=== PATIENT | female | born 1995 | race Caucasian/White ===

== ENCOUNTER 2023-01-19 17:03 | Observation (INO) | payer MEDICAID, SELFPAY ==
[2023-01-19 17:04] VITALS: BP 111/86; PULSE 85; RESP 17; TEMP 37; O2SAT 98; BMI 29.5
--- NOTE | 2023-01-19 17:16 | EDS_ITS ---
HPI History of Present Illness Chief Complaint: Substance Abuse Informant: patient Narrative Narrative: Requesting detox from opiates. Patient's been using fentanyl for about 2 or so years. She has never been through detox program before. She has tried Suboxone as an outpatient but has not worked well. She tried it recently when it was prescribed by her family doctor. But she states she is pretty sure she went into precipitated withdrawal. She is not comfortable doing this as an outpatient as it just has not been successful. She states she is just done with using drugs. It is too much injury to her body and too much money and she wants to be off them. She did have a drainage of an abscess in her right antecubital fossa about a week ago. She has 3 days of Bactrim left. She states is doing better. Of note, she has so much scarring in her antecubital fossa on both sides that she cannot extend her arms fully. This is chronic and not acute. She is not having fevers or chills. She has never had infected heart valves. She feels the arm that was treated is doing a lot better. PFSH PFSH Home Medications risperidone 1 mg tablet 1 mg PO DAILY NA 07/02/14 [History Last Taken Unknown] topiramate 50 mg tablet (Topamax) 50 mg PO PRN PRN Headache 07/02/14 [History Last Taken Unknown] medroxyprogesterone 150 mg/mL intramuscular syringe 150 mg IM .[id number] PROGESTERONE 07/03/14 [History Last Taken Unknown] oxycodone-acetaminophen 5 mg-325 mg tablet 1 - 2 tab PO Q4H PRN PRN Pain #20 tabs 07/03/14 [Rx Last Taken Unknown] albuterol sulfate 90 mcg/actuation aerosol inhaler inhalation ASTHMA 01/19/23 [History Last Taken Unknown] buprenorphine HCl 8 mg sublingual tablet 8 mg sublingual BID detox 01/19/23 [History Last Taken 01/14/23] cephalexin 500 mg capsule 500 mg PO BID ABSCESS 01/19/23 [History Last Taken Unknown] clonidine HCl 0.1 mg tablet 0.1 mg PO QHS BP AND SLEEP 01/19/23 [History Last Taken 01/18/23] gabapentin 800 mg tablet 800 mg PO 4X/DAY sciatic nerve 01/19/23 [History Last Taken 01/19/23] lamotrigine 25 mg tablet 25 mg PO DAILY DEPRESSION 01/19/23 [History Last Taken Unknown] sulfamethoxazole 800 mg-trimethoprim 160 mg tablet 1 tab PO BID infection 01/19/23 [History Last Taken Unknown] Allergy/AdvReac Type Severity Reaction Status Date / Time acetaminophen [From [place]] Allergy Rash Verified 07/03/14 13:04 hydrocodone bitartrate Allergy Rash Verified 07/03/14 13:04 [From [place]] buprenorphine [From Suboxone] AdvReac blisters Verified 01/19/23 17:04 naloxone [From Suboxone] AdvReac blisters Verified 01/19/23 17:04 Social History Smoking Status: Never smoker ROS ROS ED ROS Narrative Patient withdrawal she gets nausea vomiting muscle aches congestion anxiety but she is not withdrawing now as she used to to 3 hours ago. Her review of systems is essentially negative right now. Constitutional Constitutional ED: Denies chills, fever(s) or sweats Eyes Eyes: Denies change in vision ENT ENT ED: Denies rhinorrhea Cardiovascular Cardiovascular: Denies chest pain or palpitations Respiratory/Chest Respiratory/Chest: Denies cough or dyspnea Gastrointestinal Gastrointestinal: Denies nausea or vomiting Musculoskeletal Musculoskeletal: Denies neck pain Integumentary Reports abscess and other Details: Abscess right antecubital fossa. Neurologic Neurologic: Denies headache(s) Psychiatric Psychiatric: Denies suicidal ideation or suicidal thoughts Endocrine Endocrinology: Denies polydipsia or polyuria Hematologic/Lymphatic Hematologic/Lymphatic: Denies easy bleeding or easy bruising Allergic/Immunologic Allergic/Immunologic ED: Denies urticaria EXAM Physical Exam Narrative Exam Narrative: Awake alert no acute distress. Reasonably good informant. HEENT shows no trauma. Neck is supple Heart is regular. I cannot hear any murmurs at all. Lungs are clear bilaterally. Saturations are normal at 98% on room air showing no hypoxia. Abdomen is nontender Extremities show dense formation of track diez in both antecubital fossa. These are so dense and scarred that she cannot extend either arm. She has about a 20 to 30 degree extension lag. This is chronic and not acute. There is a little bit of an open area healing in the right antecubital fossa but no sign of cellulitis. She is on day of 7 of 10 days of Bactrim for this and feels like it is getting markedly better. Const Vital Signs: 01/19/23 17:04 Temperature 98.6 F Temperature Source Temporal Pulse Rate 85 Respiratory Rate 17 Blood Pressure 111/86 H Blood Pressure Mean 94 Pulse Ox 98 Oxygen Delivery Method Room Air MDM MDM MDM Narrative Medical decision making narrative: Patient's electrolytes show no marked abnormalities. Patient's liver function test show no acute abnormalities. Patient CBC shows normal white count but mild anemia. If his alcohol is negative. Urine toxicology is positive for MDMA and opiates. Jackelyn the case with hospitalist. We actually discussed this case prior to all the blood work returning. Plan will be admission pending marked abnormalities. Lab Data Attestation: I reviewed the patient's lab results. Labs: Laboratory Results - last 24 hr 01/19/23 01/19/23 01/19/23 17:30 17:40 17:40 WBC Cancelled Corrected WBC Cancelled RBC Cancelled Hgb Cancelled Hct Cancelled MCV Cancelled MCH Cancelled MCHC Cancelled RDW Std Deviation Cancelled RDW Coeff of Juan Cancelled Plt Count Cancelled MPV Cancelled Immature Gran % (Auto) Cancelled Neut % (Auto) Cancelled Lymph % (Auto) Cancelled Leon % (Auto) Cancelled Eos % (Auto) Cancelled Baso % (Auto) Cancelled Absolute Neuts (auto) Cancelled Absolute Lymphs (auto) Cancelled Total Counted Cancelled Neutrophils % (Manual) Cancelled Band Neutrophils % Cancelled Lymphocytes % (Manual) Cancelled Monocytes % (Manual) Cancelled Eosinophils % (Manual) Cancelled Basophils % (Manual) Cancelled Metamyelocytes % Cancelled Myelocytes % Cancelled Promyelocytes % Cancelled Blast Cells % Cancelled Plasma Cell % (Manual) Cancelled Other Cells % Cancelled Nucleated RBC % Cancelled Nucleated RBCs/100 WBC Cancelled Differential Comment Cancelled Diff Path Review Cancelled Hypersegmented Neuts Cancelled Atypical Lymphocytes Cancelled Reactive Lymphocytes Cancelled Smudge Cells Cancelled Toxic Granulation Cancelled Toxic Vacuolation Cancelled Dohle Bodies Cancelled Jai Rods Cancelled Platelet Estimate Cancelled Plt Morphology Comment Cancelled RBC Morphology Cancelled Cancelled Polychromasia Cancelled Hypochromasia Cancelled Poikilocytosis Cancelled Basophilic Stippling Cancelled Anisocytosis Cancelled Microcytosis Cancelled Macrocytosis Cancelled Spherocytes Cancelled Sickle Cells Cancelled Target Cells Cancelled Tear Drop Cells Cancelled Ovalocytes Cancelled Stomatocytes Cancelled [place] Bodies Cancelled Liz Cells Cancelled Bite Cells Cancelled Crenated Cell Cancelled Acanthocytes (Spur) Cancelled Rouleaux Cancelled Schistocytes Cancelled Sodium 135 L Potassium 3.9 Chloride 102 Carbon Dioxide 28.0 Anion Gap 5 BUN 8 Creatinine 0.58 Estim Creat Clear Calc 136.39 Est GFR (MDRD) Af Amer 159 Est GFR (MDRD) Non-Af 131 BUN/Creatinine Ratio 13.7 Glucose 88 Calcium 9.0 Total Bilirubin 0.50 AST 43 H ALT 47 Alkaline Phosphatase 115 Total Protein 7.8 Albumin 3.4 Globulin 4.4 H Albumin/Globulin Ratio 0.8 L Serum , Qual NEGATIVE Urine Opiates Screen POSITIVE H Urine Methadone Screen NEGATIVE Ur Barbiturates Screen NEGATIVE Ur Phencyclidine Scrn NEGATIVE Ur Amphetamines Screen NEGATIVE MDMA (Ecstasy) Screen POSITIVE H U Benzodiazepines Scrn NEGATIVE Urine Cocaine Screen NEGATIVE U Cannabinoids Screen NEGATIVE Ur Drug Screen Comment Ethyl Alcohol < 3.0 Management Discussion w/another healthcare provider: Hospitalist Discharge Plan Dx/Rx/DC Orders Clinical Impression: Opiate withdrawal, Desire for detoxification, Opiate abuse, continuous Disposition Disposition: Acute Care Hospital [facility] Discharge Date/Time: 01/19/23 18:53
--- NOTE | 2023-01-19 17:32 | PCM.HP.STD ---
HPI - General General Date of Admission: 01/19/23 Date of Service: 01/19/23 Chief Complaint: acute opioid withdrawal HPI Narrative BRISA GARRISON, is a 27 F with a PMh as outlined including chronic drug abuse who presents via the ED on 01/19/2023 for detox from alcohol. She ahs been using fentanyl for ~ 2 years now, and her last use was on the morning of admission. She used about 2 grams of fentanyl daily and uses it IV. She had used suboxone in the past but it hadnt helped much. She also recently had an abscess drained via I&D in her antecubital fossa by her PCP recently and was on antibiotics. She denied any shakes, tremors, nausea, vomiting or any other symptoms. Review of systems was otherwise negative. BP of 111/86, MT of 85, resp of 17 and temp of 98.6F. She was saturating at 98% on room air. CBC and CMP were pending. She is being admitted to be managed for acute opioid withdrawal. [facility] Home Medications risperidone 1 mg tablet 1 mg PO DAILY NA 07/02/14 [History Last Taken Unknown] topiramate 50 mg tablet (Topamax) 50 mg PO PRN PRN Headache 07/02/14 [History Last Taken Unknown] medroxyprogesterone 150 mg/mL intramuscular syringe 150 mg IM .[id number] PROGESTERONE 07/03/14 [History Last Taken Unknown] oxycodone-acetaminophen 5 mg-325 mg tablet 1 - 2 tab PO Q4H PRN PRN Pain #20 tabs 07/03/14 [Rx Last Taken Unknown] albuterol sulfate 90 mcg/actuation aerosol inhaler inhalation ASTHMA 01/19/23 [History Last Taken Unknown] buprenorphine HCl 8 mg sublingual tablet 8 mg sublingual BID detox 01/19/23 [History Last Taken 01/14/23] cephalexin 500 mg capsule 500 mg PO BID ABSCESS 01/19/23 [History Last Taken Unknown] clonidine HCl 0.1 mg tablet 0.1 mg PO QHS BP AND SLEEP 01/19/23 [History Last Taken 01/18/23] gabapentin 800 mg tablet 800 mg PO 4X/DAY sciatic nerve 01/19/23 [History Last Taken 01/19/23] lamotrigine 25 mg tablet 25 mg PO DAILY DEPRESSION 01/19/23 [History Last Taken Unknown] Allergy/AdvReac Type Severity Reaction Status Date / Time acetaminophen [From [place]] Allergy Rash Verified 07/03/14 13:04 hydrocodone bitartrate Allergy Rash Verified 07/03/14 13:04 [From [place]] buprenorphine [From Suboxone] AdvReac blisters Verified 01/19/23 17:04 naloxone [From Suboxone] AdvReac blisters Verified 01/19/23 17:04 Social History Smoking Status: Never smoker ROS Constitutional Constitutional: Denies anorexia, chills, fatigue, fever(s), malaise or weakness Eyes Eyes: Denies change in vision ENT HEENT: Denies dysphagia or headache(s) Cardiovascular Cardiovascular: Denies chest pain, edema or paroxysmal nocturnal dyspnea Respiratory/Chest Respiratory/Chest: Denies cough, shortness of breath at rest or shortness of breath with exertion Gastrointestinal Gastrointestinal: Denies abdominal pain, diarrhea, nausea or vomiting Genitourinary Genitourinary: Denies dysuria Musculoskeletal Musculoskeletal: Denies muscle weakness Integumentary Integumentary: Denies dry skin Neurologic Neurologic: Denies confusion, dizziness, focal weakness, headache(s) or weakness Psychiatric Psychiatric: Denies anxiety Endocrine Endocrinology: Denies change in body appearance Vital Signs Vital Signs Vital Signs: 01/19/23 17:04 Temperature 98.6 F Temperature Source Temporal Pulse Rate 85 Respiratory Rate 17 Blood Pressure 111/86 H Blood Pressure Mean 94 Pulse Ox 98 Oxygen Delivery Method Room Air Weight Weight: 183 lb 4.8 oz Body Mass Index (BMI) 29.5 Physical Exam Const alert, oriented x3 and no apparent distress General Appearance: cooperative HEENT normocephalic, head/scalp atraumatic, moist oral mucous membranes and oropharynx normal Eyes PERRL and EOMs intact bilaterally Neck no lymphadenopathy and supple Lymph Lymphatic: no lymphadenopathy noted and no lymphedema noted Resp normal respiratory effort, normal air movement and clear to auscultation bilaterally Cardio regular rate, regular rhythm, S1 normal heart sound, S2 normal heart sound and no murmurs GI normal to inspection, nondistended, normoactive bowel sounds, soft to palpation, non-tender and non-distended Extremity Extremity Narrative: upper extremity contractures which are chronic. Due to IV drug use. Neuro CN's II-XII intact bilaterally, no focal motor deficits and no sensory deficits noted Psych thought process normal and cooperative Appearance: appropriate Results Lab / Micro Data 01/19/23 18:35 01/19/23 17:40 Assessment & Plan Assessment/Plan (1) Opiate withdrawal: PLAN: Plan #Acute opioid withdrawal Admit to [facility] Started on opioid withdrawal protocol with buprenorphine Adjunctive meds for symptomatic relief #Recent left antecubital fossa abscess S/p I&D done by her PCP. currently on Bactrim. We will continue. DVT prophylaxis: Low risk. Encouraged to ambulate. Charges/Coding Visit Charges Inpatient E&M: 01684 Init Hosp L3
--- NOTE | 2023-01-19 17:59 | CM.ED ---
Addendum entered by Aniyah Hays 01/19/23 18:49: treatment navigator updated. Plan: [facility] AKBAR Astudillo Original Note: Social Work Referral Source: case find Referral Reason: [facility] SW met with patient and introduced self and role as [facility] SW. Patient lying on hospital bed and agreeable to speak with SW. SW inquired about patient's AOD use as well as knowledge of [facility]. Patient reports fentanyl use with last use today and limited knowledge of [facility]. SW briefly reviewed rules including the program is voluntary, personal belongings including phone are locked up and no guests are permitted to allow the patient to be focused on detox. SW also explained the patient will meet with detox coordinator to discuss aftercare/ discharge plan. Patient voiced understanding and reports her mother and significant other are her main supports, explaining her significant other is 10 years sober. SW provided patient with emotional support. SW remains available if further needs arise. AKBAR Astudillo
[2023-01-19 18:18] LABS: Amphetamine Urine VISTA NEGATIVE (<1000 ng/mL); Barbiturate Urine VISTA NEGATIVE (< 200 ng/mL); Benzodiazepine Urine VISTA NEGATIVE (< 200 ng/mL); Cocaine Urine VISTA NEGATIVE (< 300 ng/mL); Ecstacy Urine VISTA POSITIVE (< 500 ng/mL); Methadone Urine VISTA NEGATIVE (< 300 ng/mL); PCP Urine VISTA NEGATIVE (< 25 ng/mL); THC Urine VISTA NEGATIVE (< 50 ng/mL); Vista UDS pH Range 7
[2023-01-19 18:20] LABS: Alcohol, Blood (Medical)-Serum < 3.0 mg/dL
[2023-01-19 18:24] LABS: Internal QC Validated? YES +Cl - CLEAR BKGD; Pregnancy, Serum, hCG Quali. NEGATIVE Negative
[2023-01-19 18:27] LABS: ALB/GLOB Ratio 0.8 RATIO (0.9-2.4); AST(SGOT) 43 U/L (15-37); Alanine Aminotransfer ALT/SGPT 47 U/L (13-56); Albumin, Serum 3.4 g/dL (3.2-5.0); Alkaline Phosphatase 115 U/L (45-117); Anion Gap 5 (5-15); BUN 8 mg/dL (7-18); BUN/Creat Ratio 13.7 RATIO (10-20); Chloride 102 mmol/L (98-107); Creatinine, Serum 0.58 mg/dL (0.55-1.02); EST Glomerular Filtration Rate 131 mL/min (>60); Est Glom Filt Rate - Afr Amer 159 mL/min (>60); Estimated Creatinine Clearance 136.39 ml/min; Globulin 4.4 g/dL (2.2-4.2); Glucose 88 mg/dL (74-106); Potassium 3.9 mmol/L (3.5-5.1); Protein, Total 7.8 g/dL (6.4-8.2); Sodium Level 135 mmol/L (136-145)
[2023-01-19 18:33] LABS: Absolute Lymphocyte Count 2.13 X10^3/uL (0.83-4.51); Absolute Neutrophil Count 2.7 X10^3/uL (2.0-7.7); Basophil# 0.03 X10^3/uL; Basophil% 0.5 % (0-1); Eosinophil# 0.37 X10^3/uL; Eosinophils% 6.6 % (0-5); Hematocrit 35.1 % (37-47); Lymphocyte # 2.13 X10^3/ul (0.83-4.51); Lymphocyte % 37.8 % (19-41); Mean Corp Hgb Conc 31.3 g/dL (32-36); Mean Corpuscular Volume 79.8 fL (81-99); Mean Platelet Vol. 9.9 fl (6.2-12.0); Monocyte# 0.35 X10^3/uL; Monocyte% 6.2 % (0-10); NRBC Flagged by Analyzer 0 % (0-5); Neutrophil # 2.74 X10^3/uL (2.7-7.7); Neutrophil % 48.5 % (47-70); Platelet Count 243 K/mm3 (150-450); RBC Distribution Width CV 15.5 % (11.6-14.6); White Blood Count 5.6 K/mm3 (4.4-11.0)
[2023-01-19 19:01] VITALS: BMI 29.2
[2023-01-19 19:02] VITALS: BP 127/81; PULSE 74; RESP 18; TEMP 36.6; O2SAT 100
[2023-01-19 20:11] VITALS: BP 109/73; PULSE 98; RESP 16; TEMP 36.8; O2SAT 99
[2023-01-19] MEDS: cloNIDine HCl 0.1 MG Tablet PO (20:40)
[2023-01-19] MEDS: Methocarbamol 750 MG Tablet PO (20:40)
[2023-01-19] MEDS: hydrOXYzine PAM 25 MG Capsule 50 MG PO (20:41)
--- NOTE | 2023-01-19 20:42 | NURSING ---
pt states she has a prescription for 8mg of subutex from her physician at home that she will begin when she leaves [facility]. She reports she will take it BID and that she cannot take medications with narcan as she ie allergic. this nurse provided printed information on buprenorphine to pt to review prior to beginning taper. pt reports she is afraid of precipitous withdrawal and wants to wait to begin the taper until closer to 0000. Pt reports she takes Gabapentin 800mg QID and clonidine .1 Qhs along with lamictal QAM. pt also reports that due to her IV infiltration to her right AC she was taking BActrim BID and states that she is suppose to take it for 4 more days and is requesting order.
--- NOTE | 2023-01-19 23:25 | NURSING ---
Addendum entered by Jennifer Cam 01/20/23 01:57: At start of shift nurse went in to see pt and she reports that she was feeling restless and feeling the effects of withdrawal. She was asking questions regarding home medications and states that she needs to have her Gabapentin as ordered 800mg Q8H, Conidine 0.1, Bactrim BID for 4 more days per her PCP (I&D right AC due to infiltration). Home medication list addressed with Dr. Pearson and updated accordingly. Pt also asked this nurse if she would be given 8mg of Subutex BID as she was ordered by her physician, that was to begin this Tuesday. She reports that her goal is to get completely off of the Fentanyl by using Subutex only. However, she reports that she had tried to withdrawal and took Subutex which caused a precipitous withdrawal and so she used a large amount of Fentanyl, IV, to reverse the effect. Pt reports that her physician notified her that she will prescribe 8mg BID of Subutex for at least up to 18 months upon d/c from hospital. Nurse notified pt that her answers to the COWS questions show that she is symptomatic and can begin buprenorphine. Pt reports she does not want it now and will wait until closer to 0000 to be sure she is in full withdrawal. PRN meds given at 2039 (vistaril, methocarbamol and clonidine). pt then took a shower. Original Note: Meds given at 2039. Pt requested to have home meds ordered and then took a shower. She requested to have buprenorphine closer to 0000. this nurse entered room at 2300 to see if pt needed medications. Pt laying on her left side in bed. This nurse turned lights on and pt was sleeping soundly. Pt. looked at this nurse, rolled her eyes and closed her eyes and laid her head back down on her pillow. This nurse will continue to monitor pt.
[2023-01-20 03:02] VITALS: BP 93/67; PULSE 73; RESP 16; TEMP 36.2; O2SAT 100
--- NOTE | 2023-01-20 03:12 | NURSING ---
TOXICOLOGY TEACHER's in to check on patient and she was awake in bed requesting snacks- same given. Notified TOXICOLOGY TEACHER's that she would like PM medications and that her stomach was cramping. This nurse entered room, checked vitals, assessed pt and completed the CINA which resulted in a score of 0. Pt then requested to hold off on taking any medications until tomorrow during the day.
[2023-01-20 06:35] LABS: Absolute Lymphocyte Count 2.11 X10^3/uL (0.83-4.51); Absolute Neutrophil Count 1.6 X10^3/uL (2.0-7.7); Basophil# 0.03 X10^3/uL; Basophil% 0.7 % (0-1); Eosinophil# 0.36 X10^3/uL; Eosinophils% 8.1 % (0-5); Hematocrit 32.1 % (37-47); Hemoglobin 9.8 g/dL (12.0-15.0); Lymphocyte # 2.11 X10^3/ul (0.83-4.51); Lymphocyte % 47.4 % (19-41); Mean Corp Hgb Conc 30.5 g/dL (32-36); Mean Corpuscular Hgb 24.7 pg (27.0-32.0); Mean Corpuscular Volume 80.9 fL (81-99); Mean Platelet Vol. 10.1 fl (6.2-12.0); Monocyte# 0.34 X10^3/uL; Monocyte% 7.6 % (0-10); NRBC Flagged by Analyzer 0 % (0-5); Platelet Count 232 K/mm3 (150-450); RBC Distribution Width CV 15.6 % (11.6-14.6); RBC Distribution Width SD 45.8 fl (35.1-43.9); Red Blood Count 3.97 M/mm3 (4.2-5.4); White Blood Count 4.5 K/mm3 (4.4-11.0)
[2023-01-20 06:59] LABS: Anion Gap 2 (5-15); BUN 9 mg/dL (7-18); BUN/Creat Ratio 15.3 RATIO (10-20); Calcium,Total 8.8 mg/dL (8.5-10.1); Chloride 104 mmol/L (98-107); Creatinine, Serum 0.59 mg/dL (0.55-1.02); EST Glomerular Filtration Rate 130 mL/min (>60); Est Glom Filt Rate - Afr Amer 157 mL/min (>60); Estimated Creatinine Clearance 134.08 ml/min; Glucose 129 mg/dL (74-106); Potassium 4.1 mmol/L (3.5-5.1); Sodium Level 137 mmol/L (136-145)
[2023-01-20 10:47] VITALS: BP 96/63; PULSE 75; RESP 16; TEMP 36.7; O2SAT 100
[2023-01-20] MEDS: Cephalexin 500 MG Capsule PO (10:52)
[2023-01-20] MEDS: Smz/Tmp Ds Tablet 1 TABLET PO (10:52)
[2023-01-20] MEDS: Gabapentin 800 MG Tablet PO ×2 (10:52→15:17)
[2023-01-20] MEDS: lamoTRIgine 25 MG Tablet PO (10:53)
--- NOTE | 2023-01-20 11:08 | NURSING ---
Joaquin Rosen called to check up on pt and this nurse was busy at the time so this nurse just called back and there was no answer, message left.
[2023-01-20] MEDS: Methocarbamol 750 MG Tablet PO (11:29)
[2023-01-20] MEDS: Buprenorphine HCl 2 MG TAB.SUBL 4 MG SL (11:29)
[2023-01-20] MEDS: hydrOXYzine PAM 25 MG Capsule 50 MG PO (11:29)
[2023-01-20] MEDS: Ondansetron 8 MG Tablet PO (12:35)
[2023-01-20] MEDS: cloNIDine HCl 0.1 MG Tablet PO (12:44)
[2023-01-20] MEDS: Dicyclomine 10 MG Capsule 20 MG PO (12:44)
[2023-01-20] MEDS: Loperamide 2 MG Capsule PO (12:44)
--- NOTE | 2023-01-20 14:41 | PCM.PN.HOSP ---
Reason for Visit Reason for Visit: Follow-up for acute opioid withdrawal syndrome Subjective Subjective Patient having shaking in the morning. Prior to that she was sleeping. She did not want buprenorphin for 2424 hrs. of admission. Objective Data Objective Data Vital Signs: Vital Signs Temp Pulse Resp BP Pulse Ox O2 Del Method 98.0 F 75 16 96/63 100 Room Air 01/20/23 10:47 01/20/23 10:47 01/20/23 10:47 01/20/23 10:47 01/20/23 10:47 01/20/23 10:47 Oxygen Delivery Method Room Air Weight: 180 lb 12.465 oz Body Mass Index (BMI) 29.2 Lab / Micro Data 01/20/23 06:25 01/20/23 06:25 Labs: Laboratory Results - last 24 hr 01/19/23 17:30: Urine Opiates Screen POSITIVE H, Urine Methadone Screen NEGATIVE, Ur Barbiturates Screen NEGATIVE, Ur Phencyclidine Scrn NEGATIVE, Ur Amphetamines Screen NEGATIVE, MDMA (Ecstasy) Screen POSITIVE H, U Benzodiazepines Scrn NEGATIVE, Urine Cocaine Screen NEGATIVE, U Cannabinoids Screen NEGATIVE, Ur Drug Screen Comment 01/19/23 17:40: WBC Cancelled, Corrected WBC Cancelled, RBC Cancelled, Hgb Cancelled, Hct Cancelled, MCV Cancelled, MCH Cancelled, MCHC Cancelled, RDW Std Deviation Cancelled, RDW Coeff of Juan Cancelled, Plt Count Cancelled, MPV Cancelled, Immature Gran % (Auto) Cancelled, Neut % (Auto) Cancelled, Lymph % (Auto) Cancelled, [place] % (Auto) Cancelled, Eos % (Auto) Cancelled, Baso % (Auto) Cancelled, Absolute Neuts (auto) Cancelled, Absolute Lymphs (auto) Cancelled, Total Counted Cancelled, Neutrophils % (Manual) Cancelled, Band Neutrophils % Cancelled, Lymphocytes % (Manual) Cancelled, Monocytes % (Manual) Cancelled, Eosinophils % (Manual) Cancelled, Basophils % (Manual) Cancelled, Metamyelocytes % Cancelled, Myelocytes % Cancelled, Promyelocytes % Cancelled, Blast Cells % Cancelled, Plasma Cell % (Manual) Cancelled, Other Cells % Cancelled, Nucleated RBC % Cancelled, Nucleated RBCs/100 WBC Cancelled, Differential Comment Cancelled, Diff Path Review Cancelled, Hypersegmented Neuts Cancelled, Atypical Lymphocytes Cancelled, Reactive Lymphocytes Cancelled, Smudge Cells Cancelled, Toxic Granulation Cancelled, Toxic Vacuolation Cancelled, Dohle Bodies Cancelled, Jai Rods Cancelled, Platelet Estimate Cancelled, Plt Morphology Comment Cancelled, RBC Morphology Cancelled 01/19/23 17:40: RBC Morphology Cancelled, Polychromasia Cancelled, Hypochromasia Cancelled, Poikilocytosis Cancelled, Basophilic Stippling Cancelled, Anisocytosis Cancelled, Microcytosis Cancelled, Macrocytosis Cancelled, Spherocytes Cancelled, Sickle Cells Cancelled, Target Cells Cancelled, Tear Drop Cells Cancelled, Ovalocytes Cancelled, Stomatocytes Cancelled, [place]az[place] Bodies Cancelled, Liz Cells Cancelled, Bite Cells Cancelled, Crenated Cell Cancelled, Acanthocytes (Spur) Cancelled, Rouleaux Cancelled, Schistocytes Cancelled, Sodium 135 L, Potassium 3.9, Chloride 102, Carbon Dioxide 28.0, Anion Gap 5, BUN 8, Creatinine 0.58, Estim Creat Clear Calc 136.39, Est GFR (MDRD) Af Amer 159, Est GFR (MDRD) Non-Af 131, BUN/Creatinine Ratio 13.7, Glucose 88, Calcium 9.0, Total Bilirubin 0.50, AST 43 H, ALT 47, Alkaline Phosphatase 115, Total Protein 7.8, Albumin 3.4, Globulin 4.4 H, Albumin/Globulin Ratio 0.8 L, Serum , Qual NEGATIVE, Ethyl Alcohol < 3.0 01/19/23 18:35: WBC 5.6, RBC 4.40, Hgb 11.0 L, Hct 35.1 L, MCV 79.8 L, MCH 25.0 L, MCHC 31.3 L, RDW Std Deviation 45.0 H, RDW Coeff of Juan 15.5 H, Plt Count 243, MPV 9.9, Immature Gran % (Auto) 0.400, Neut % (Auto) 48.5, Lymph % (Auto) 37.8, Dolores % (Auto) 6.2, Eos % (Auto) 6.6 H, Baso % (Auto) 0.5, Absolute Neuts (auto) 2.7, Absolute Lymphs (auto) 2.13, Nucleated RBC % 0 01/20/23 06:25: WBC 4.5, RBC 3.97 L, Hgb 9.8 L, Hct 32.1 L, MCV 80.9 L, MCH 24.7 L, MCHC 30.5 L, RDW Std Deviation 45.8 H, RDW Coeff of Juan 15.6 H, Plt Count 232, MPV 10.1, Immature Gran % (Auto) 0.200, Neut % (Auto) 36.0 L, Lymph % (Auto) 47.4 H, Dolores % (Auto) 7.6, Eos % (Auto) 8.1 H, Baso % (Auto) 0.7, Absolute Neuts (auto) 1.6 L, Absolute Lymphs (auto) 2.11, Nucleated RBC % 0, Sodium 137, Potassium 4.1, Chloride 104, Carbon Dioxide 31.0, Anion Gap 2 L, BUN 9, Creatinine 0.59, Estim Creat Clear Calc 134.08, Est GFR (MDRD) Af Amer 157, Est GFR (MDRD) Non-Af 130, BUN/Creatinine Ratio 15.3, Glucose 129 H, Calcium 8.8 Physical Exam Narrative General: Alert, Oriented x3, Cooperative HEENT: Atraumatic, PERRLA, EOMI, Normocephalic Oral: No Gingival or Mucosal Lesions/ Ulcerations Neck: Supple, No JVD, Negative Carotid Bruits Lungs: Air entry diminished in bilateral lung bases. No crepitation/rhonchi Cardiovascular: Regular rate, Regular Rhythm, Normal S1, Normal S2, No murmurs Abdomen: Bowel Sounds Present, Soft, Non Tender, Non-Distended : No renal angle tenderness. No suprapubic tenderness. Extremities: No edema, Capillary Refill Less than 3 Seconds Skin: No rashes, No breakdown Musculoskeletal: No Tenderness to Palpation of Joints or Extremities Neurological: Cranial nerves II-XII grossly intact, DTR 2+/4. No acute focal neurological deficit. Psych/Mental Status: Anxious, shaking. No hallucinations. Assessment & Plan Assessment/Plan (1) Opiate withdrawal: PLAN: Plan 1. Acute opioid withdrawal syndrome with history of chronic opioid use dependence and tolerance: She does not 2 g of fentanyl daily mainly uses IV. For last few days she is a snorting fentanyl but she does not know exactly it might be cocktail. She had left antecubital abscess drained by PCP about 1 week ago and was on antibiotics. No acute fever or chills. She had used Suboxone in the past and not helped. Patient is admitted in [facility] floor. The patient is started on buprenorphine along with other adjunctive medications as needed for medical stabilization as per order set of opioid withdrawal syndrome.Patient also on trazodone, hydroxyzine, gabapentin as needed ordered. Advised quitting opioid use. automobile service station manager consult. 2. #Recent left antecubital fossa abscess S/p I&D done by her PCP. currently on Bactrim. continue. 3. DVT prophylaxis: Low risk. Encouraged to ambulate. Charges/Coding Visit Charges Inpatient E&M: 42104 Subs Hosp L2
[2023-01-20 15:19] VITALS: BP 100/78; PULSE 67; RESP 18; TEMP 36.8; O2SAT 97
--- NOTE | 2023-01-20 18:46 | PCM.DC.SUM ---
Providers Date of Admission: 01/19/23 Date of Discharge: 01/20/23 Primary Care Physician: No Primary Care Phys Reason For Visit: ACUTE OPIOID WITHDRAWAL Diagnosis Discharge Diagnosis (1) Opiate withdrawal: Status: Acute Code(s): F11.93 - Opioid use, unspecified with withdrawal Plan 1. Acute opioid withdrawal syndrome with history of chronic opioid use dependence and tolerance: She does not 2 g of fentanyl daily mainly uses IV. For last few days she is a snorting fentanyl but she does not know exactly it might be cocktail. She had left antecubital abscess drained by PCP about 1 week ago and was on antibiotics. No acute fever or chills. She had used Suboxone in the past and not helped. Patient is admitted in MedSurg floor. The patient is started on buprenorphine along with other adjunctive medications as needed for medical stabilization as per order set of opioid withdrawal syndrome.Patient also on trazodone, hydroxyzine, gabapentin as needed ordered. Advised quitting opioid use. entry level assistant manager consult. 01/20: The patient later on signed AMA.Relapse of acute opioid withdrawal complications explained to the patient and she understands. 2. #Recent left antecubital fossa abscess S/p I&D done by her PCP. currently on Bactrim. continue. 3. DVT prophylaxis: Low risk. Encouraged to ambulate. Medications at Discharge Home Medications risperidone 1 mg tablet 1 mg PO DAILY NA 07/02/14 topiramate 50 mg tablet (Topamax) 50 mg PO PRN PRN Headache 07/02/14 medroxyprogesterone 150 mg/mL intramuscular syringe 150 mg IM .[id number] PROGESTERONE 07/03/14 oxycodone-acetaminophen 5 mg-325 mg tablet 1 - 2 tab PO Q4H PRN PRN Pain #20 tabs 07/03/14 albuterol sulfate 90 mcg/actuation aerosol inhaler inhalation ASTHMA 01/19/23 buprenorphine HCl 8 mg sublingual tablet 8 mg sublingual BID detox 01/19/23 cephalexin 500 mg capsule 500 mg PO BID ABSCESS 01/19/23 clonidine HCl 0.1 mg tablet 0.1 mg PO QHS BP AND SLEEP 01/19/23 gabapentin 800 mg tablet 800 mg PO 4X/DAY sciatic nerve 01/19/23 lamotrigine 25 mg tablet 25 mg PO DAILY DEPRESSION 01/19/23 sulfamethoxazole 800 mg-trimethoprim 160 mg tablet 1 tab PO BID infection 01/19/23 Physical Exam Narrative Please see exam finding on the same day of progress note Weight / BMI Weight Weight: 180 lb 12.465 oz Body Mass Index (BMI) 29.2 ABG / Lab / Microbiology Data 01/20/23 06:25 01/20/23 06:25 Meaningful Use Info Meaningful Use Diagnoses (Choose all that apply): None applicable Discharge Plan Admission Admit Date/Time: 01/19/23 17:45 Attending Provider: Garrett Augustine Primary Care Provider: Care Physician,Holly Primary Consulting Providers: Silvia Shields Discharge Orders/Prescriptions Prescriptions: No Action risperidone 1 MG tablet 1 mg PO DAILY topiramate [Topamax] 50 MG tablet 50 mg PO PRN PRN (Reason: Headache) medroxyprogesterone 150 MG/ML syringe 150 mg IM .[id number] oxycodone-acetaminophen 1 TABLET tablet 1 - 2 tab PO Q4H PRN PRN (Reason: Pain) Qty: 20 0RF buprenorphine HCl 8 mg tablet, sublingual 8 mg SUBLINGUAL BID Patient Comments: TAKE 1 TABLET UNDER THE TONGUE TWICE DAILY gabapentin 800 mg tablet 800 mg PO 4X/DAY Patient Comments: TAKE 1 TABLET BY MOUTH 4 TIMES A DAY clonidine HCl 0.1 mg tablet 0.1 mg PO QHS lamotrigine 25 mg tablet 25 mg PO DAILY Patient Comments: TAKE ONE TABLET BY MOUTH ONCE DAILY albuterol sulfate 90 mcg/actuation HFA aerosol inhaler INHALATION Patient Comments: INHALE ONE TO TWO puffs BY MOUTH EVERY FOUR TO SIX HOURS NEEDED cephalexin 500 mg capsule 500 mg PO BID Patient Comments: TAKE 2 CAPSULES BY MOUTH TWICE A DAY FOR 10 DAYS sulfamethoxazole-trimethoprim 800-160 mg tablet 1 tab PO BID Patient Comments: TAKE 1 TABLET BY MOUTH TWICE A DAY FOR 10 DAYS Rx Instructions: filled 01/14/23 for 10 days Referrals / Follow Up: Care Physician,No Primary [Primary Care Provider] - Disposition Disposition (needs filled in before D/C Order can be placed): Against Medical Advice Charges/Coding Addendum Addendum: Please cancel the billing charge of the progress note. Visit Charges Inpatient E&M: [id number] Disch Hosp >30min
== END 2023-01-20 15:45 | disposition left against medical advice (07) ==
LOC: ED 18:05 → MS3 01-20 07:15
PROVIDERS: Admitting Provider Student in an Organized Health Care Education/Training Program; Emergency Provider Emergency Medicine; Visit Provider Internal Medicine
DX: F11.23 Opioid dependence with withdrawal (principal); L02.414 Cutaneous abscess of left upper limb; D64.9 Anemia, unspecified; Z79.899 Other long term (current) drug therapy
CPT/HCPCS: 36415; 80048; 80053; 80307; 82077; 84703; 85025; 97802; 99285; H0012